=== PATIENT | female | born 1955 | race Caucasian/White ===

== ENCOUNTER → 2017-07-28 09:00 | Outpatient (CLI) | payer OTHER, SELFPAY ==
[2017-07-30 14:38] LABS: HPV Reflexed? NOT INDICATED
== END ==
PROVIDERS: Visit Provider Obstetrics & Gynecology
DX: Z12.4 Encounter for screening for malignant neoplasm of cervix (principal)
CPT/HCPCS: 88175; G0145

== ENCOUNTER → 2018-10-13 15:05 | Outpatient (CLI) | payer OTHER, SELFPAY ==
--- NOTE | 2018-10-13 15:10 | BI_ITS ---
MAMMOGRAPHY - BILATERAL SCREENING REASON FOR EXAM: Female, 63 years old. Routine annual screening examination. PERTINENT HISTORY: Non-contributory. TECHNIQUE: Digital bilateral breast carlos a (3D mammographic acquisition) in the CC and MLO projections. 2-D mediolateral oblique (MLO) and craniocaudad (CC) views of both breasts were obtained. CAD: Full Field Digital Mammography with Computer Added Detection was performed. COMPARISON: Comparison is made with prior outside examination dated August 15, 2016. FINDINGS: Breast Composition: The breasts are heterogeneously dense, which may obscure small masses. There are no dominant masses or suspicious calcifications. No other significant abnormalities are identified. There has been no significant change since the prior study. BI/SCREEN MAMM (CAD) W/CARLOS A BILAT IMPRESSION: Stable bilateral screening mammogram. Yearly follow-up mammogram recommended. (A) ASSESSMENT CATEGORY: BIRADS Category 1: Negative. A letter regarding these results will be sent to the patient by the facility within 30 days. Approximately 10% of breast cancers are not detected by mammography. A normal mammogram should not delay biopsy of a clinically suspicious abnormality. [id number] Electronically Signed: Robert Polanco, at 14:51 EDT , Service support ,
== END ==
PROVIDERS: Referring Provider Obstetrics & Gynecology; Visit Provider Obstetrics & Gynecology
DX: Z12.31 Encounter for screening mammogram for malignant neoplasm of breast (principal)
CPT/HCPCS: 77063; 77067

== ENCOUNTER → 2019-05-05 | Outpatient (CLI) | payer OTHER, SELFPAY ==
--- NOTE | 2019-05-05 | FLU_PTH ---
PATIENT: ROSMERY MORALEZ LOC: [facility] U#:[id number] AGE/SX: 64/F ROOM: RE05/05/[address]: Dr. Brittnee Donis MD : 1955 BED: DIS: 05/05/2019 SPEC #: [id number] RECD: 05/05/19 17:02 STATUS: LEVSulema BISHOP #: [id number] WALLACE: 05/05/19 00:[address]: Brittnee Donis DEPT: CYTOLOGY RECD BY: Coleman Banks ENTERED: 05/06/19 09:57 SP TYPE: Fluid OTHR DR: No Primary Care Phys Tissues: A - Thyroid gland, NOS B - Thyroid gland, NOS Procedures: Special Stain Group II Surgery Specimen Level IV Cytospin Fluid HEADER OPERATION: Ultrasound-guided fine needle aspiration of left thyroid PRE-OP DIAGNOSIS: Thyroid nodules TISSUE SUBMITTED: A - Left thyroid FNA fluid for cytology, B - Left thyroid FNA x4 slides DIAGNOSIS CYTOLOGY A. Left thyroid nodule fluid, FNA (cytospin and cell block): Rare benign follicular cells are noted. B. Left thyroid nodule, FNA (smears): Consistent with benign colloid nodule. Adequate for evaluation. See comment. SHAY:narinder 05/09/19 COMMENT Correlation with clinical, radiologic findings and appropriate follow up are necessary. CYTOLOGY STUDY Slides are reviewed. CYTOLOGY GROSS A - Received is 32 ml of clear colorless fluid labeled with the patient's name and and designated per the requisition as left thyroid. Submitted for cytology preparation including cell block. B - Received are four smears labeled with the patient's name and designated per the requisition as left thyroid. Submitted for staining. / narinder 05/06/19 TC:5 CPT: 35485, 27969, 22702
== END | disposition home or self-care (01) ==
LOC: LABSPEC 17:03
PROVIDERS: Referring Provider Surgery; Visit Provider Surgery
DX: E04.1 Nontoxic single thyroid nodule (principal)
CPT/HCPCS: 88108; 88305; 88313

== ENCOUNTER → 2019-12-14 13:47 | Outpatient (CLI) | payer OTHER, SELFPAY ==
--- NOTE | 2019-12-14 13:51 | BI_ITS ---
MAMMOGRAPHY - BILATERAL SCREENING REASON FOR EXAM: Female, 64 years old. Routine annual screening examination. PERTINENT HISTORY: Non-contributory. TECHNIQUE: Digital bilateral breast carlos a (3D mammographic acquisition) in the CC and MLO projections. 2-D mediolateral oblique (MLO) and craniocaudad (CC) views of both breasts were obtained. CAD: Full Field Digital Mammography with Computer Added Detection was performed. COMPARISON: Comparison is made with prior examination of 10/13/2018. FINDINGS: Breast Composition: The breasts are heterogeneously dense, which may obscure small masses. There are no dominant masses or suspicious calcifications. No other significant abnormalities are identified. There has been no significant change since the prior study. BI/SCREEN MAMM (CAD) W/CARLOS A BILAT IMPRESSION: Stable bilateral screening mammogram. Yearly follow-up mammogram recommended. (A) ASSESSMENT CATEGORY: BIRADS Category 1: Negative. A letter regarding these results will be sent to the patient by the facility within 30 days. Approximately 10% of breast cancers are not detected by mammography. A normal mammogram should not delay biopsy of a clinically suspicious abnormality. [id number] Electronically Signed: Robert Polanco, at 15:02 EDT , Service support ,
== END ==
PROVIDERS: Referring Provider Obstetrics & Gynecology; Visit Provider Obstetrics & Gynecology
DX: Z12.31 Encounter for screening mammogram for malignant neoplasm of breast (principal)
CPT/HCPCS: 77063; 77067

== ENCOUNTER → 2021-01-23 08:32 | Outpatient (CLI) | payer OTHER, MEDICARE, SELFPAY ==
--- NOTE | 2021-01-23 08:35 | BI_ITS ---
MAMMOGRAPHY - BILATERAL SCREENING REASON FOR EXAM: Female, 65 years old. Routine annual screening examination. PERTINENT HISTORY: Non-contributory. TECHNIQUE: Digital bilateral breast carlos a (3D mammographic acquisition) in the CC and MLO projections. 2-D mediolateral oblique (MLO) and craniocaudad (CC) views of both breasts were obtained. CAD: Full Field Digital Mammography with Computer Added Detection was performed. COMPARISON: Comparison is made with prior study dated 12/14/2019 and 10/13/2018. FINDINGS: Breast Composition: The breasts are heterogeneously dense, which may obscure small masses. There are no dominant masses or suspicious calcifications. No other significant abnormalities are identified. There has been no significant change since the prior study. BI/SCRN MAMM (CAD)W/CARLOS A BILAT IMPRESSION: Stable bilateral screening mammogram. Yearly follow-up mammogram recommended. (A) ASSESSMENT CATEGORY: BIRADS Category 1: Negative. A letter regarding these results will be sent to the patient by the facility within 30 days. Approximately 10% of breast cancers are not detected by mammography. A normal mammogram should not delay biopsy of a clinically suspicious abnormality. [id number] Electronically Signed: Robert Polanco MD at 9:30 EST , Service support ,
== END ==
PROVIDERS: Referring Provider Obstetrics & Gynecology; Visit Provider Obstetrics & Gynecology
DX: Z12.31 Encounter for screening mammogram for malignant neoplasm of breast (principal)
CPT/HCPCS: 77063; 77067

== ENCOUNTER → 2021-01-23 | Outpatient (CLI) | payer OTHER, MEDICARE, SELFPAY ==
[2021-01-28 13:18] LABS: HPV APTIMA, High Risk Negative (Negative)
== END | disposition home or self-care (01) ==
LOC: LABSPEC 11:48
PROVIDERS: Visit Provider Obstetrics & Gynecology
DX: Z12.4 Encounter for screening for malignant neoplasm of cervix (principal)
CPT/HCPCS: 87624; 88175; G0145

== ENCOUNTER → 2022-05-02 | Outpatient (CLI) | payer MEDICARE, OTHER, SELFPAY ==
--- NOTE | 2022-05-02 09:44 | BI_ITS ---
MAMMOGRAPHY - BILATERAL SCREENING REASON FOR EXAM: Female, 67 years old. Routine annual screening examination. PERTINENT HISTORY: Non-contributory. TECHNIQUE: Digital bilateral breast carlos a (3D mammographic acquisition) in the CC and MLO projections. 2-D mediolateral oblique (MLO) and craniocaudad (CC) views of both breasts were obtained. CAD: Full Field Digital Mammography with Computer Added Detection was performed. COMPARISON: Comparison is made with prior study dated 01/23/2021 and 12/14/2019. FINDINGS: Breast Composition: The breasts are heterogeneously dense, which may obscure small masses. There are no dominant masses or suspicious calcifications. No other significant abnormalities are identified. There has been no significant change since the prior study. BI/SCRN MAMM (CAD)W/CARLOS A BILAT IMPRESSION: Stable bilateral screening mammogram. Yearly follow-up mammogram recommended. (A) ASSESSMENT CATEGORY: BIRADS Category 1: Negative. A letter regarding these results will be sent to the patient by the facility within 30 days. Approximately 10% of breast cancers are not detected by mammography. A normal mammogram should not delay biopsy of a clinically suspicious abnormality. [id number] Electronically Signed: Robert Polanco MD at 11:16 EST ,
== END | disposition home or self-care (01) ==
LOC: OPBI 09:44
PROVIDERS: PCP Physician Assistant; Referring Provider Nurse Practitioner Women's Health; Visit Provider Nurse Practitioner Women's Health
DX: Z12.31 Encounter for screening mammogram for malignant neoplasm of breast (principal)
CPT/HCPCS: 77063; 77067

== ENCOUNTER → 2022-06-13 | Outpatient (CLI) | payer MEDICARE, OTHER, SELFPAY ==
--- NOTE | 2022-06-13 12:11 | US_ITS ---
STUDY: THYROID ULTRASOUND REASON FOR EXAM: Female, 67 years old. NODULE TECHNIQUE: Ultrasound evaluation of the thyroid was performed with real-time and static neal-scale imaging. COMPARISON: None. FINDINGS: RIGHT LOBE: The right lobe of the thyroid gland measures 5.2 x 1.9 x 1.5 cm. There is a heterogeneous echotexture. On the right side there is a 5 x 6 x 3 mm, 7 x 5 x 3 mm 10 x 9 x 7 mm and 9 x 8 x 7 mm nodules. There is a cystic nodule that measures 5 x 7 mm. There is a heterogeneous nodule measuring 9 x 8 x 7 mm LEFT LOBE: The left lobe of the thyroid gland measures 5.3 x 1.7 x 1.4 cm. There is a homogeneous echotexture. There are multiple nodules within the left side thyroid measuring 6 x 6 x 8 mm, 10 x 6 x 5 mm which has some internal vascularity and is minimally inhomogeneous. And 6 x 8 x 7 mm. Which is hypoechoic There is a small hypoechoic nodules. ISTHMUS: The isthmus measures 2 mm . The regional lymph nodes are normal. US/Thyroid IMPRESSION: Findings compatible with multinodular thyroid with multiple nodules some cystic some heterogeneous without significant dominance or particular increased vascularity. Recommend consideration for follow-up ultrasound in 6-12 months to ensure stability. Electronically Signed: Rosa Richard MD at 20:20 EDT ,
--- NOTE | 2022-06-13 12:12 | ECHOD_ITS ---
Reason For Study: Murmur Procedure This was a 2D Doppler, Color Flow transthoracic echocardiogram. Exam performed in department. Left Ventricle Normal LV size. The estimated ejection fraction is 65 %. No evidence for diastolic dysfunction. No regional wall motion abnormalities noted. Right Ventricle Normal RV size. Normal systolic function. Atria Normal left atrium. Normal right atrium. No doppler evidence for ASD. Mitral Valve There is mild to moderate mitral annular calcification. There is no mitral valve stenosis. No mitral valve insufficiency. Tricuspid Valve There is no tricuspid stenosis. Trivial tricuspid valve insufficiency. Unable to estimate RV systolic pressure due to insufficient tricuspid regurgitant envelope. Aortic Valve Trisinus/trileaflet aortic valve. There is no aortic stenosis. No aortic valve insufficiency. Pulmonic Valve There is no pulmonic valvular stenosis. No pulmonic valve insufficiency. Great Vessels Normal aortic root. MMode/2D Measurements & Calculations LVIDd: 3.8 cm IVSd: 1.2 cm Ao root diam: 3.5 cm LVIDs: 3.0 cm LVPWd: 1.3 cm LA dimension: 3.8 cm RVDd: 3.8 cm FS: 21.3 % LAV(MOD-bp): 49.1 ml LA A4 area: 16.4 cm2 RA A4 area: 12.9 cm2 LAV(MOD-bp) Indexed: 25.9 ml/m2 LAV(MOD-sp2): 50.0 ml LAV(MOD-sp4): 42.1 ml Time Measurements MV dec time: 0.18 sec Doppler Measurements & Calculations MV E max joon: 92.2 cm/sec Lat Peak E' Joon: 11.2 cm/sec Med Peak E' Joon: 6.4 cm/sec MV A max joon: 117.4 cm/sec E/E' lat: 8.2 E/E' med: 14.4 MV E/A: 0.78 MV V2 max: 112.2 cm/sec MV P1/2t max joon: 100.0 cm/sec Ao V2 max: 145.5 cm/sec MV max P.0 mmHg MV P1/2t: 60.5 msec Ao max P.5 mmHg MV V2 mean: 74.4 cm/sec Ao V2 mean: 103.2 cm/sec MV mean P.5 mmHg MV dec slope: 484.2 cm/sec2 Ao mean P.7 mmHg MV V2 VTI: 25.8 cm MVA(P1/2t): 3.6 cm2 Ao V2 VTI: 34.8 cm AV (velocity ratio): 0.69 LV V1 max: 99.8 cm/sec PA V2 max: 79.6 cm/sec LV V1 max P.0 mmHg LV V1 mean P.2 mmHg LV V1 mean: 68.9 cm/sec LV V1 VTI: 24.1 cm ECHO/Echo Complete Interpretation Summary The estimated ejection fraction is 65 %. No evidence for diastolic dysfunction. Ordering Physician: Reyna Zacarias Referring Physician: Reyna Zacarias Performed By: Pramod Haddad RCS
== END | disposition home or self-care (01) ==
PROVIDERS: PCP Physician Assistant; Referring Provider Physician Assistant; Visit Provider Physician Assistant
DX: R01.1 Cardiac murmur, unspecified (principal); E04.1 Nontoxic single thyroid nodule
CPT/HCPCS: 76536; 93306

== ENCOUNTER → 2023-05-04 | Outpatient (CLI) | payer MEDICARE, OTHER, SELFPAY ==
--- NOTE | 2023-05-04 11:56 | BI_ITS ---
MAMMOGRAPHY - BILATERAL SCREENING REASON FOR EXAM: Female, 68 years old. Routine annual screening examination. PERTINENT HISTORY: Non-contributory. TECHNIQUE: Digital bilateral breast carlos a (3D mammographic acquisition) in the CC and MLO projections. 2-D mediolateral oblique (MLO) and craniocaudad (CC) views of both breasts were obtained. CAD: Full Field Digital Mammography with Computer Added Detection was performed. COMPARISON: Comparison is made with prior study dated May 02, 2022 and January 23, 2021. FINDINGS: Breast Composition: The breasts are heterogeneously dense, which may obscure small masses. There are no dominant masses or suspicious calcifications. No other significant abnormalities are identified. There has been no significant change since the prior study. BI/SCRN MAMM (CAD)W/CARLOS A BILAT IMPRESSION: Stable bilateral screening mammogram. Yearly follow-up mammogram recommended. (A) ASSESSMENT CATEGORY: BIRADS Category 1: Negative. A letter regarding these results will be sent to the patient by the facility within 30 days. Approximately 10% of breast cancers are not detected by mammography. A normal mammogram should not delay biopsy of a clinically suspicious abnormality. [id number] Electronically Signed: Robert Polanco MD at 13:05 EST ,
== END | disposition home or self-care (01) ==
LOC: OPBI 11:55
PROVIDERS: PCP Physician Assistant; Referring Provider Obstetrics & Gynecology; Visit Provider Obstetrics & Gynecology
DX: Z12.31 Encounter for screening mammogram for malignant neoplasm of breast (principal)
CPT/HCPCS: 77063; 77067

== ENCOUNTER → 2023-05-28 | Outpatient (CLI) | payer MEDICARE, OTHER, SELFPAY ==
--- NOTE | 2023-05-28 13:54 | US_ITS ---
STUDY: ULTRASOUND OF THE FEMALE PELVIS - COMPLETE REASON FOR EXAM: Female, 68 years old. Family history of ovarian and uterine cancer TECHNIQUE: Transabdominal and Transvaginal TECHNICAL QUALITY: Adequate. COMPARISON: None. FINDINGS: The uterus is anteverted and is in a midline position. The uterus measures 7.3 x 4.1 x 3.5 cm. Normal uterine cervix. The endometrium measures 2.6 mm in thickness, and is hyperechoic. There is no demonstrated endometrial mass. There is no demonstrated myometrial mass. I.U.D. - The patient does not have an I.U.D. The right ovary is not visualized. The left ovary is visualized. The left ovary measures 2.5 x 1.9 x 1.0 cm. There is no left ovarian cyst or ovarian mass. There is no visualized left adnexal mass or complex lesion. There is normal arterial and normal venous vascularity. There is no fluid in the cul-de-sac. The bladder is sonographically normal US/Pelvic (Non ) IMPRESSION: Sonographically normal pelvis, right ovary not visualized Electronically Signed: Tommy Olvera MD at 8:38 EDT ,
--- NOTE | 2023-05-28 13:54 | US_ITS ---
INDICATION: THYROID NODULE EXAMINATION: Ultrasound US Thyroid (eg thyroid, parathyroid, parotid) TECHNIQUE: Lara scale and color doppler imaging was performed of the thyroid gland. COMPARISON: June 13, 2022 FINDINGS: RIGHT THYROID LOBE: 4.8 x 1.5 x 1.8 cm. Heterogeneous echotexture with normal vascularity. [There is a 5 x 6 x 3 mm cystic nodule within the upper half of the thyroid lobe. There is a 7 x 5 x 3 mm mid thyroid cystic nodule. There is a 8 x 9 x 7 mm complex cystic nodule with solid mural component. An adjacent solid 10 x 8 x 7 mm heterogeneous solid nodule. Multiple additional smaller heterogeneous nodules are also present. LEFT THYROID LOBE: 4.7 x 2.0 x 1.4 cm. Heterogeneous echotexture with normal vascularity. [There is a 6 x 6 x 8 mm cystic nodule with small eccentric solid mural component. There is a heterogeneous 10 x 6 x 5 mm solid nodule. This noted solid complex heterogeneous 6 x 8 x 7 mm nodule.. Additional smaller nodules are present. ISTHMUS: 3 mm. No thyroid nodules are present. US/Thyroid IMPRESSION: Bilateral heterogeneous thyroid lobes with numerous nodules, relatively stable since the previous study. Electronically Signed: Trae Bowman DO at 23:30 EDT Reading Location ID and State: [facility] / [place] Tel [phone], Service support ,
== END | disposition home or self-care (01) ==
LOC: US 13:52
PROVIDERS: PCP Physician Assistant; Referring Provider Physician Assistant; Visit Provider Physician Assistant
DX: E04.1 Nontoxic single thyroid nodule (principal); Z80.41 Family history of malignant neoplasm of ovary; Z80.49 Family history of malignant neoplasm of other genital organs
CPT/HCPCS: 76536; 76830; 76856

== ENCOUNTER 2023-06-16 08:55 | Day surgery (SDC) | payer MEDICARE, OTHER, SELFPAY ==
--- NOTE | 2023-05-28 13:50 | EKG12_ITS ---
Test Reason : PRE-OP Blood Pressure : / mmHG Vent. Rate : 063 BPM Atrial Rate : 063 BPM P-R Int : 192 ms QRS Dur : 064 ms QT Int : 388 ms P-R-T Axes : 063 -10 -26 degrees QTc Int : 397 ms Sinus rhythm with occasional Premature ventricular complexes Inferior infarct , age undetermined Abnormal ECG Confirmed by Juan Pablo Hampton ([id number]), index editor DION BISHOP ([id number]) on 05/29/2023 2:09:47 PM Referred By: ADA Confirmed By:Juan Pablo Hampton
[2023-05-28 16:17] LABS: Hematocrit 39.8 % (37-47); Hemoglobin 13.4 g/dL (12.0-15.0); Mean Corp Hgb Conc 33.7 g/dL (32-36); Mean Corpuscular Volume 89.2 fL (81-99); Mean Platelet Vol. 9.4 fl (6.2-12.0); Platelet Count 310 K/mm3 (150-450); RBC Distribution Width CV 12.5 % (11.6-14.6); RBC Distribution Width SD 40.7 fl (35.1-43.9); Red Blood Count 4.46 M/mm3 (4.2-5.4); White Blood Count 7.6 K/mm3 (4.4-11.0)
[2023-05-28 17:04] LABS: ALB/GLOB Ratio 1.1 RATIO (0.9-2.4); AST(SGOT) 25 U/L (15-37); Alanine Aminotransfer ALT/SGPT 37 U/L (13-56); Albumin, Serum 3.9 g/dL (3.2-5.0); Alkaline Phosphatase 99 U/L (45-117); Anion Gap 8 (5-15); BUN 12 mg/dL (7-18); BUN/Creat Ratio 16.1 RATIO (10-20); Calcium,Total 9.7 mg/dL (8.5-10.1); Chloride 104 mmol/L (98-107); Creatinine, Serum 0.75 mg/dL (0.55-1.02); EST Glomerular Filtration Rate 82 mL/min (>60); Est Glom Filt Rate - Afr Amer 99 mL/min (>60); Globulin 3.7 g/dL (2.2-4.2); Glucose 86 mg/dL (74-106); Potassium 3.1 mmol/L (3.5-5.1); Protein, Total 7.6 g/dL (6.4-8.2); Sodium Level 140 mmol/L (136-145)
[2023-06-01 14:08] LABS: Cancer Antigen 125 2303 8.6 U/mL (0.0-38.1)
--- NOTE | 2023-06-14 04:25 | HP.PCM_ITS ---
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 Required: No Is patient in pain?: No Allergies codeine Allergy (Mild, Verified 06/05/23 14:23) Nauseapenicillin G Allergy (Mild, Verified 06/05/23 14:23) Rash Medications atenolol 50 mg-chlorthalidone 25 mg tablet 1 tab PO DAILY 04/23/22 [History Confirmed 06/05/23] atorvastatin 20 mg tablet 20 mg PO DAILY 04/23/22 [History Confirmed 06/05/23] calcium carbonate 500 mg calcium (1,250 mg) chewable tablet (Calcium 500) 500 mg PO DAILY 04/23/22 [History Confirmed 06/05/23] metformin 500 mg tablet 500 mg PO DAILY 04/23/22 [History Confirmed 06/05/23] omega 5-nvw-xab-fish oil 1,200 mg (144 mg-216 mg) capsule (Fish Oil) cap PO 04/23/22 [History Confirmed 06/05/23] omeprazole 20 mg capsule,delayed release 20 mg PO DAILY 04/23/22 [History Confirmed 06/05/23] potassium chloride 10 mEq capsule,extended release 10 meq PO DAILY 04/23/22 [History Confirmed 06/05/23] glipizide 10 mg tablet 10 mg PO DAILY 05/04/23 [History Confirmed 06/05/23] Is last menstrual period known: No Post menopausal: Yes Patient : No : No PFSH Medical History Diabetes mellitus GERD (gastroesophageal reflux disease) H/O ganglion cyst High cholesterol Hypertension Surgical History (Updated 06/05/23 @ 14:[address] 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 Female Reproductive History Menopausal Symptoms: No hot flashes, No night sweats, No difficulty concentrating and No change in libido History 2 Elective abortions Hx Para 2 Spontaneous abortions Hx # Term Pregnancies Ectopic pregnancies Hx # Pregnancies Multiple births # of living children Past Pregnancies Del. Date Name GA/Weeks Outcome Route Bth Weight Infant Gen Labor Lgth Anesthesia Del Locatn Provider FOB Unknown Zeke 03/18/1977 Unknown Essie 04/22/1979 ROS Const Constitutional: Reports as per HPI; Denies fatigue, increased appetite, poor appetite, night sweats, weight gain or weight loss Cardio Card: Denies chest pain Resp Resp: Denies cough or dyspnea GI GI: Reports as per HPI; Denies abdominal pain, bloating, constipation, nausea or vomiting : Reports as per HPI and other; Denies difficulty voiding, dysuria, hematuria, hot flashes, nipple discharge, pelvic pain, prolapse symptoms, urinary frequency, urinary incontinence, urinary urgency, vaginal discharge, vaginal dryness, vaginal odor or vaginal pruritus Skin Skin/Breast: Denies changing lesions, breast mass, breast pain, breast skin changes or nipple discharge Psych Psych: Denies anxiety, change in libido, depression or difficulty concentrating Exam Const General: cooperative, healthy appearing, comfortable, no acute distress, well developed and well groomed [facility] Head: normal to inspection and normocephalic Ears: hearing grossly normal bilaterally and external ears normal Nose: external nose normal Face and sinus: normal facial exam Neck Neck: normal visual inspection, full ROM and no lymphadenopathy Thyroid: thyroid normal Chest Chest palpation & inspection: normal inspection of the chest Breast inspection: normal inspection of the breasts and normal inspection of the axillae Breast palpation: normal palpation of the breasts, normal palpation of the axillae and no axillary lymphadenopathy Resp Effort & Inspection: normal respiratory effort GI Inspection: normal to inspection and non-distended Palpation: soft, no hepatosplenomegaly and no guarding General: bladder normal to palpation External Female Exam: normal external appearance, normal appearance of the urethra and no lesions Urethra: normal appearance of the urethra and normal palpation Speculum Exam - Vagina: normal appearance of the vagina and normal vaginal discharge Speculum Exam - Cervix: normal appearance of the cervix, no cervical discharge, no lesions and nontender Bimanual Exam- Vagina & Uterus: normal bimanual exam, uterine size normal, bladder normal to palpation, No tender, uterine mobility normal, consistency normal, non-tender and no cervical motion tenderness Bimanual Exam- Adnexa, other: normal adnexae, no masses and non-tender Skin General: no rashes or lesions noted Neuro General: patient alert, moves all extremities and no focal motor deficits Extrem General: normal to inspection and no pedal edema Psych Appearance: grossly normal Mental Status: mental status grossly normal Affect: normal affect Speech and Movement: speech and movement normal Attitude: cooperative Coding Level of Care Code No Charge Diagnoses Family history of ovarian cancer Z80.41 RAILROAD CARMAN exam for high-risk Medicare patient Z91.89 Assessment and Plan Assessment and Plan (1) Family history of ovarian cancer: Status: Acute Comment: declines empower screening. offered annual pelvic ultrasound and CA 125 screening to patient. (2) RAILROAD CARMAN exam for high-risk Medicare patient: Status: Acute Plan After discussing the patient's diagnosis and treatment plan options, patient wishes to proceed with surgical management. I have discussed with the patient the risks, benefits, and alternatives of the procedure which include but are not limited to risks of anesthesia, bleeding, infection, possible damage to bowel, bladder, or surrounding vasculature which could lead to additional surgery to evaluate any complications. Patient agrees to procedure and wishes to proceed. ACOG/uptodate references given for additional information regarding procedure.
[2023-06-16] VITALS (8 sets, daily range): BP systolic 111–146; BP diastolic 62–92; PULSE 68–103; RESP 16; TEMP 36.3–37.1; O2SAT 92–96; BMI 34.0
[2023-06-16] MEDS: Lactated Ringers 1,000 ML 15 ML IV (09:43)
[2023-06-16 09:49] LABS: Potassium 3.4 mmol/L (3.5-5.1)
[2023-06-16 10:09] LABS: Bedside Glucose 178 mg/dL (74-106)
--- NOTE | 2023-06-16 10:35 | OV_PTH ---
PATIENT: ROSMERY MORALEZ LOC: [facility] [place] U#:[id number] AGE/SX: 68/F ROOM: RE06/16/[address]: Dr. Marilin Camarillo MD : 1955 BED: DIS: 06/16/2023 SPEC #: [id number] RECD: 06/16/23 16:15 STATUS: CARI BISHOP #: [id number] WALLACE: 06/16/23 10:[address]: Marilin Camarlilo DEPT: SURGICAL PATHOLOGY RECD BY: Kayli Streeter ENTERED: 06/17/23 09:30 SP TYPE: OVARY OTHR DR: KAREN Perez Tissues: Ovary, NOS Procedures: Surgery Specimen Level IV HEADER OPERATION: Laparoscopic, Salpingectomy-oophorectomy, pelvic washings PRE-OP DIAGNOSIS: Family history of ovarian cancer TISSUE SUBMITTED: Bilateral tubes and ovaries MICROSCOPIC DIAGNOSIS Bilateral tubes and ovaries, Salpingectomy -oophorectomy: Right and left fallopian tubes- benign paratubal cysts. Right and left ovaries- Focal corpora albicantia. MAR YKAY/mr 06/18/23 COMMENT Please correlate with corresponding cytology case ([id number]). MICROSCOPIC DESCRIPTION Slides are reviewed. GROSS DESCRIPTION Received in fixative is one container labeled with the patient's name and designated Bilateral tubes and ovaries. The specimen consists of bilateral fallopian tubes and ovaries. Specimen does not identify as right or left. One of the fallopian tubes measures 3.5cm in length and 0.5cm in diameter. The fimbrial end is identified. Sections reveal unremarkable cut surfaces. No tubal ovarian adhesions are identified. Adjacent ovary measures 3.0 x 1.5 x 1.2cm. Sections reveal unremarkable cut surfaces. Second fallopian tube measures 3.0cm in length and 0.5cm in diameter. Fimbrial end is identified and no tubal ovarian adhesins are noted. A paratubal cyst is noted measuring 1.0cm in greatest dimension. Sections reveal unremarkable cut surfaces. Second adjacent ovary measures 3.0 x 1.2 x 1.2cm. Sections reveal unremarkable cut surfaces. Precision Lens [employer]isher sections are submitted in six cassettes as follows: 1-3- One fallopian tube and adjacent ovary( 1- fallopian tube, 2&3- ovary), 4-6 Second fallopian tube and adjacent ovary (4- fallopian tube and paratubal cyst, 5&6- ovary) SHAY/ 06/17/23 TC:5 CPT: 93482h6
--- NOTE | 2023-06-16 10:35 | FLU_PTH ---
PATIENT: ROSMERY MORALEZ LOC: [facility] [place] U#:[id number] AGE/SX: 68/F ROOM: RE06/16/[address]: Dr. Marilin Camarillo MD : 1955 BED: DIS: 06/16/2023 SPEC #: [id number] RECD: 06/16/23 16:15 STATUS: CARI REMack #: [id number] WALLACE: 06/16/23 10:[address]: Marilin Camarillo DEPT: CYTOLOGY RECD BY: Kayli Streeter ENTERED: 06/17/23 09:29 SP TYPE: Fluid OTHR DR: KAREN Perez Tissues: Pelvis, NOS Procedures: Special Stain Group II Surgery Specimen Level IV Cytospin Fluid HEADER OPERATION: Laparoscopic, Salpingectomy, oophorectomy, pelvic washings PRE-OP DIAGNOSIS: Family history of ovarian cancer TISSUE SUBMITTED: Pelvic washings for cytology DIAGNOSIS CYTOLOGY Pelvic washings for cytology (cytospin and cellblock): Negative for malignant cells. See comment. AM/ 06/18/23 COMMENT Please correlate this case with corresponding surgical case ([id number]). CYTOLOGY STUDY Slides are reviewed. CYTOLOGY GROSS Received is 30 ml of light yellow-cloudy fluid labeled with the patient's name and and designated per the requisition as Pelvic washings. Submitted for cytology preparation including cell block. mr 06/17/23 TC:5 CPT: 95564,14531
--- NOTE | 2023-06-16 11:25 | OP.PCM_ITS ---
Problems Associated Problem List Diagnoses (1) Family history of ovarian cancer: (2) [employer] exam for high-risk Medicare patient: (3) Family history of pancreatic cancer: (4) Family history of lung cancer: (5) Family history of bladder cancer: (6) Family history of uterine cancer: Report of Operation Date of Procedure: 06/16/23 Pre-Operative Diagnosis: see problem list Post-Operative Diagnosis: same Surgery/Procedure Performed:: laparoscopic bilateral salpingoo-ophorectomy Description of Surgical Findings:: small adhesions LLQ- taken down. nl tubes and ovaries, uterus Surgeon: Marilin Camarillo physical science teacher: Senthil Chapin Type of Anesthesia: General and Local Special Medications: none Specimen's removed: tubes and ovaries Drains: none Estimated Blood Loss (mL): 50 Fluids Replaced: crystalloid Description of Procedure: Patient was taken in the operating room and was placed under general anesthesia was prepped and draped in normal sterile fashion in the dorsal lithotomy position. Bladder was drained of clear urine and SCDs were on preoperatively. Uterus was sounded and a uterine manipulator was placed after dilating. Attention was then paid to the abdominal portion of the procedure and the umbilicus was elevated with towel clamps and injected with Marcaine and after a 12 mm incision was made and the Veress needle was entered into the abdomen confirmed to be intra-abdominal with a low opening pressure of less than 5 mmHg. Abdomen was insufflated with CO2 gas and a 12 mm optical trocar was placed under direct visualization. A right and left lower quadrant 5 mm ports were placed under direct visualization. washings taken. Uterus was well visualized and bilateral fallopian tubes and ovaries were identified and the bilateral infundibulopelvic ligament were transected across using the LigaSure device followed by transecting across the mesosalpinx to the attachment to the uterine corpus bilaterally the tubes and ovaries were removed without complication. Excellent hemostasis was noted. Specimens were removed through the umbilical port site through a bag without any intra-abdominal spillage of contents. The fascial incision was closed using the Adiel Jimenez and an 0 Vicryl. Liver and upper abdomen were visualized notably within normal limits and no other gross abnormalities were seen in the abdomen. All instruments removed from the abdomen after gas was desufflated. Port sites were closed with 3-0 Monocryl Steri's and op sites were applied. All instruments removed from the vagina and patient was awoken and taken recovery in stable condition. Grafts/Implants Used: none Procedure Start Time: 01:36 Complications none Admit VTE Documentation VTE Present on Admission: No VTE Mechan Device Prophylaxis: SCD's Multi Select Codes Urinary/Genital Urinary/Genital CPT Codes: 02161 Laproscopic BS/O
--- NOTE | 2023-06-16 11:25 | DCINST_ITS ---
Discharge Instructions Diet Discharge Diet: No restrictions Activity Discharge Activity: Return to Normal Activity, May Not Drive (for 2 weeks or while taking narcotic pain meds.), May Shower and May Take a Tub Bath (in 7 days) May resume sexual activity in: 1 week Weight Bearing Status: Full weight bearing Dressing / Incision Call your doctor if your incision/area has: Continuous Slow Oozing, Sudden Increased Bleeding, Increased Pain/ Swelling, Increased Redness and Foul Smelling Discharge Call your doctor if you observe: Fever of 101 or Higher, Using more than 1 pad per hour, Shortness of breath, Chest pain and Uncontrolled pain Suture Line Care: Avoid Pulling/Pushing and Avoid Pinching/Bending Remove Dressing in: 1 week (if present) Cleanse incision/area with: Soap & Water and Keep Dressing Clean & Dry Follow Up Care When: Call to make an appointment with your doctor for a fu/incision check in 1- 2 weeks. Test Results: Test results from this visit will be discussed in further detail at your follow- up appointment, if applicable. Discharge Plan Admission Attending Provider: Marilin Camarillo Primary Care Provider: Reyna Zacarias Discharge Orders/Prescriptions Prescriptions: New oxycodone-acetaminophen [Percocet] 5-325 mg tablet 1 tab PO Q6H PRN (Reason: pain) 7 Days Qty: 10 0RF naproxen [naproxen] 500 mg tablet 500 mg PO BID PRN PRN (Reason: Pain) Qty: 30 1RF No Action metformin 500 mg tablet 500 mg PO .6pm omega 2-ujf-blb-fish oil [Fish Oil] 1,200 (144-216) mg capsule 1 cap PO DAILY calcium carbonate [Calcium 500] 500 mg calcium (1,250 mg) tablet,chewable 500 mg PO DAILY atenolol-chlorthalidone 50-25 mg tablet 0.5 tab PO DAILY omeprazole 20 mg capsule,delayed release(DR/EC) 20 mg PO DAILY potassium chloride 10 mEq capsule, extended release 20 meq PO DAILY atorvastatin 20 mg tablet 20 mg PO QHS glipizide 10 mg tablet 10 mg PO DAILY multivitamin [Daily Multi-Vitamin] Tablet 1 tab PO DAILY Referrals / Follow Up: Reyna Zacarias PA [Primary Care Provider] - Disposition Disposition (needs filled in before D/C Order can be placed): Home, Self Care
[2023-06-16] MEDS: Bupivacaine 0.25% 30 ML Vial (13:49)
[2023-06-16 14:37] LABS: Cytology, Body Fluid / CSF SEE PATHOLOGY REPORT
[2023-06-16 15:23] LABS: Bedside Glucose 143 mg/dL (74-106)
== END 2023-06-16 16:01 | disposition home or self-care (01) ==
LOC: SDC 08:56 → AC 08:58
PROVIDERS: PCP Physician Assistant; Referring Provider Obstetrics & Gynecology; Visit Provider Obstetrics & Gynecology
PROC: (CPT 58661; principal; 2023-06-16 10:20)
DX: N83.8 Other noninflammatory disorders of ovary, fallopian tube and broad ligament (principal); E11.9 Type 2 diabetes mellitus without complications; N83.11 Corpus luteum cyst of right ovary; N83.12 Corpus luteum cyst of left ovary; I10 Essential (primary) hypertension; E78.00 Pure hypercholesterolemia, unspecified; K21.9 Gastro-esophageal reflux disease without esophagitis; Z79.84 Long term (current) use of oral hypoglycemic drugs; Z79.899 Other long term (current) drug therapy; Z80.41 Family history of malignant neoplasm of ovary; Z80.0 Family history of malignant neoplasm of digestive organs; Z80.1 Family history of malignant neoplasm of trachea, bronchus and lung; Z80.49 Family history of malignant neoplasm of other genital organs; Z80.52 Family history of malignant neoplasm of bladder
CPT/HCPCS: 58661; 00840; 36415; 80053; 82962; 84132; 85027; 86304; 86850; 86900; 86901; 88108; 88305; 88313; 93005; J7120; J2405

== ENCOUNTER → 2024-05-06 | Outpatient (CLI) | payer MEDICARE, OTHER, SELFPAY ==
--- NOTE | 2024-05-06 12:15 | BI_ITS ---
PROCEDURE: SCRN MAMM (CAD)W/CARLOS A BILAT REASON FOR EXAM: F, Age 69 y/o, presents for annual screening mammogram. No family history of breast cancer. TECHNIQUE: Bilateral screening digital breast tomosynthesis with 2D and 3D images. Computer aided detection. COMPARISON: 05/04/2023, 05/02/2022. FINDINGS: There are scattered areas of fibroglandular density. No suspicious masses, areas of developing architectural distortion, or suspicious calcifications. BI/SCRN MAMM (CAD)W/CARLOS A BILAT IMPRESSION: There is no mammographic evidence of malignancy in either breast. BI-RADS 1: NEGATIVE. RECOMMEND ANNUAL MAMMOGRAPHIC SCREENING. Follow-up code: Routine Follow-up The patient will be notified of the results by letter. Reading Location: [id number]
== END | disposition home or self-care (01) ==
LOC: OPBI 12:13
PROVIDERS: PCP Physician Assistant; Referring Provider Obstetrics & Gynecology; Visit Provider Obstetrics & Gynecology
DX: Z12.31 Encounter for screening mammogram for malignant neoplasm of breast (principal)
CPT/HCPCS: 77063; 77067

== ENCOUNTER → 2024-05-25 | Outpatient (CLI) | payer MEDICARE, OTHER, SELFPAY ==
--- NOTE | 2024-05-25 12:47 | US_ITS ---
EXAM: US Soft Tissues Head and Neck, Thyroid CLINICAL INDICATION: NONTOXIC SINGLE THYROID NODULE TECHNIQUE: Real-time ultrasound scan of the thyroid gland and soft tissues of the neck with image documentation. COMPARISON: No relevant prior studies available. FINDINGS: LEFT THYROID LOBE: Left thyroid lobe measures 4.3 by 1.9 x 1.4 cm. No enlarged or calcified nodules. RIGHT THYROID LOBE: Right thyroid lobe measures 5.3 x 1.5 x 1.5 cm. No enlarged or calcified nodules. ISTHMUS: Isthmus measures 2.7 mm. No enlarged or calcified nodules. LYMPH NODES: Unremarkable. No lymphadenopathy. OTHER FINDINGS: Right nodule 1: 0.8 x 0.7 x 0.4 cm, superior aspect, cystic and hypoechoic. TR 3. Right nodule 2: 0.8 x 0.7 x 0.3 cm, mid aspect, solid/semi cystic. TR 3. Right nodule 3: 1.0 x 1.0 x 0.7 cm, inferior aspect, solid/semi cystic. TR 3. Left nodule 1: 1.0 x 1.0 x 1.0 cm, mid aspect, solid/semi cystic. TR 3. Left nodule 2: 1.0 x 0.6 x 0.6 cm, mid aspect, solid/cystic. TR 3. Left nodule 3: 1.0 x 0.6 x 0 0.6 cm, inferior aspect, solid/cystic. TR 3. US/Thyroid IMPRESSION: Multiple thyroid nodules as above with the following recommendation. TR 1: Benign, no FNA; TR 2: No suspicious, no FNA; TR 3: Mildly suspicious, F NA if >/= 2.5 cm or Follow if >/= 1.5 cm; TR 4: Moderately suspicious, FNA if >/= 1.5 cm or Follow if >/= 1 cm; TR 5 Highly saleem spicious, FNA if >/= 1 cm or Follow if >/= 0.5 cm. Reading Location: [facility]
== END | disposition home or self-care (01) ==
LOC: US 12:46
PROVIDERS: PCP Physician Assistant; Referring Provider Physician Assistant; Visit Provider Physician Assistant
DX: E04.1 Nontoxic single thyroid nodule (principal)
CPT/HCPCS: 76536